=== PATIENT | male | born 1945 | race Caucasian/White ===

== ENCOUNTER 2017-09-14 07:15 | Day surgery (SDC) | payer OTHER, SELFPAY ==
[2017-09-14] VITALS (10 sets, daily range): BP systolic 147–164; BP diastolic 94–109; PULSE 58–83; RESP 14–18; TEMP 36.2–37.1; O2SAT 94–100
--- NOTE | 2017-09-14 | PATH_ITS ---
[facility] Accession Number: [id number] . 01 Material submitted: . RIGHT POSTERIOR LUNG . 01 Clinical history: . MASS. COPD. . 02 Diagnosis: Right Posterior Lung Mass, Needle Core Biopsy: Poorly differentiated carcinoma, favor non-small cell. Immunohistochemistry studies are pending for further characterization; results will be reported as an addendum. BFI/09/18/2017 . 02 Comment: Results discussed with Dr. Asim Mcgowan's nurse, on 09/18/17 at approximately 3:32 pm. . This case was reviewed by my colleague, Dr. Kristie Cobian, who concurs with this interpretation. . 02 Electronically signed: . Sue Black MD, Pathologist NPI- [id number] . 01 Gross description: . RIGHT POSTERIOR LUNG: Received in formalin are multiple fragment(s) of castro, soft tissue measuring 0.4 x 0.1 x 0.1 cm to 0.1 x 0.1 x 0.1 cm submitted entirely in 1 cassette(s) /TRC /TRC . 02 Pathologist provided ICD-10: R91.8 . 02 CPT . 987573 Performed at: 01 [facility] [address], [place], [place] [id number] MD Min Suazo MD Phone: [phone] Performed at: 02 [facility] [address] [place], [place] [id number] MD Reg Dowling MD Phone: [phone]
--- NOTE | 2017-09-14 | DI.CT.S_ITS ---
PROCEDURE: CT BIOPSY LUNG RT Sedation analgesia for 30 minutes. INDICATIONS: right lung mass TECHNIQUE: The indications, alternatives, benefits, risks, and possible complications of the procedure were communicated to the patient. Informed written consent from the patient was obtained and placed in the chart. Continuous EKG and hemodynamic monitoring was started by trained personnel. The patient was brought to the CT suite and forestry scientist spiral CT imaging was performed with localization grid. The appropriate site for percutaneous access to the biopsy target was marked, was prepped and draped sterilely, and was infused with local anaesthesia. Under CT guidance, a core biopsy trocar and needle set was advanced to the biopsy target, and specimen(s) were obtained. The trocar and needle were then removed, and the patient was sent for post-procedure monitoring. COMPARISON: [facility], , CT THORAX WITH CONTRAST, 07/02/2017, 10:28. FINDINGS: Biopsy site: Mass lesion abutting the posterolateral border of the right hemithorax, approximately at the junction of the upper and middle thirds of the chest. Needle: 20 gauge biopsy needle with introducer trocar. Number of passes: 4 Medications: 1% lidocaine for local anaesthesia. IV Fentanyl and Versed for conscious sedation for 30 minutes (see nursing record). Complications: None. IMPRESSION: Successful CT-guided biopsy of malignant appearing mass lesion right posterior chest near the junction of the middle and upper thirds. Note: The prior CT performed at [facility] was from 07/02/17. The mass lesion at that time had measured 3.4 x 3.4 cm. This mass lesion in the same area has further grown in the interim, now measuring 4.3 x 4.6 cm. The current biopsy was obtained intentionally along the right lateral border of the mass in an attempt to harvest viable malignant tissue given the prior imaging documentation of what appears to have been central cavitation from tissue necrosis in June of this year. Dictated by: Rico Nance M.D. on 09/14/2017 at 14:16 Approved by: Rico Nance M.D. on 09/14/2017 at 14:22
--- NOTE | 2017-09-14 | DI.RAD.S_ITS ---
PROCEDURE: XR CHEST 1V INDICATIONS: post lung biopsy TECHNIQUE: One view of the chest was acquired. COMPARISON: [facility], RG, CT THORAX WITH CONTRAST, 07/02/2017, 10:28. FINDINGS: Surgical changes and devices: None. Lungs and pleura: No pleural effusions or pneumothorax. Lungs are abnormal with pulmonary hyperexpansion consistent with severe COPD and also the right lung mass posterior to the middle third of the right hilum has an enlarged from the CT scan performed 07/02/17. Mediastinum: Mediastinal contours appear normal. Heart size is normal. Bones and chest wall: No suspicious bony lesions. Overlying soft tissues appear unremarkable. IMPRESSION: Enlarging right lung mass located posteriorly, middle third level of the right hilum axial area, and no pneumothorax has developed after percutaneous posterior approach right lung mass biopsy performed earlier today. Dictated by: Rico Nance M.D. on 09/14/2017 at 11:12 Approved by: Rico Nance M.D. on 09/14/2017 at 11:14
--- NOTE | 2017-09-14 09:58 | SUR.PHASEII ---
Bp noted patient assessed symptom free at this time. states he did skip his lisinopril this morning. Verbal report of blood pressure and patients status to Dr. Nance. No orders at this time. Patient instructed to take Lisinopril on return home. Plan to continue to monitor vital signs and status.
[2017-09-14] MEDS: fentaNYL 100 MCG/2 ML INJ 50 MCG IV (17:00)
[2017-09-14] MEDS: MIDAZOLAM 2 MG/2 ML VIAL 1 MG IV (17:02)
== END 2017-09-14 12:02 | disposition home or self-care (01) ==
PROVIDERS: PCP Family Medicine Adult Medicine; Visit Provider Family Medicine
PROC: BB24ZZZ Computerized Tomography (CT Scan) of Bilateral Lungs (ICD-10-PCS; CPT 32408; principal; 2017-09-14 08:30)
DX: R91.8 Other nonspecific abnormal finding of lung field (principal); Z87.891 Personal history of nicotine dependence; I10 Essential (primary) hypertension; J44.9 Chronic obstructive pulmonary disease, unspecified; J61 Pneumoconiosis due to asbestos and other mineral fibers
CPT/HCPCS: 32405; 71045; 77012; J2250; J3010